=== PATIENT | female | born 1930 | race Caucasian/White ===

== ENCOUNTER 2017-06-14 23:48 | Inpatient (IN) ==
[2017-06-14] MEDS ORDERED: ASPIRIN PO STA (23:59)
[2017-06-15] MEDS ORDERED: PEPCID PO ONE (00:12)
--- NOTE | 2017-06-15 00:25 | EKG Report ---
Test Performed on : 06/15/2017 00:18:38 AM Test Reason : CHEST PAIN Blood Pressure : / mmHG Vent. Rate : 101 BPM Atrial Rate : 129 BPM P-R Int : 000 ms QRS Dur : 082 ms QT Int : 318 ms P-R-T Axes : 000 069 229 degrees QTc Int : 412 ms Atrial fibrillation. with rapid ventricular response. Nonspecific ST and T wave abnormality Abnormal ECG When compared with ECG of 04-JUN-2015 02:46, No significant change was found Unconfirmed Result
[2017-06-15 00:38] LABS: BASO% 0.1 % (0.0-0.8); HEMATOCRIT 33.7 % (37.0-47.0); IMM GRAN# 0.18 X1000 (0.0-0.04); IMM GRAN% 0.6 % (0.0-0.5); LYMPH% 1.9 % (20.5-51.1); MANUAL DIFF NEEDED? YES; MCH 30.1 PG (27-31); MCHC 32.6 g/dL (33-37); MCV 92.1 FL (81-99); MONO# 1.73 X1000 (0.11-0.59); MONO% 5.6 % (1.7-9.3); MPV 10.9 FL (7.4-10.4); NEUT% 91.8 % (42.2-75.2); PLT 253 X1000 (130-400); RBC 3.66 XMIL (4.2-5.4)
[2017-06-15 00:45] LABS: INR 0.97 (0.86-1.15); PROTIME 13.7 Seconds (12.1-15.5)
[2017-06-15 00:46] LABS: PTT PL 39.7 Seconds (22.6-43.9)
[2017-06-15 00:54] LABS: AGAP 13; ALBUMIN 4.2 g/dL (3.5-5.0); ALKALINE PHOSPHATASE 74 U/L (32-104); BUN 15 mg/dL (8-22); CALCIUM 8.8 mg/dL (8.8-10.2); CHLORIDE 96 mmol/L (98-107); CK PROFILE 61 U/L (24-173); COSMO 270; GOT 15 U/L (10-30); GPT 6 U/L (10-36); MAGNESIUM 2.1 mg/dL (1.5-2.7); POTASSIUM 3.4 mmol/L (3.5-5.1); SODIUM 134 mmol/L (136-145); TCO2 25 mmol/L (25-35); TOTAL PROTEIN 6.8 g/dL (6.3-8.3)
[2017-06-15 01:48] LABS: BANDS 6 % (0-1); LYMPHS 3 % (21-51); MONO 4 % (1-9)
[2017-06-15] MEDS ORDERED: LEVAQUIN 500 MG/D5W 500 MG/100 ML IVPB IV ONE (02:16)
[2017-06-15] MEDS ORDERED: TYLENOL PO PRN (02:19)
[2017-06-15] MEDS ORDERED: ZOFRAN IV PRN (02:19)
--- NOTE | 2017-06-15 02:23 | PROVIDER DOCUMENTATION ---
This chart was entered by Sonja Hunter Scribe, acting as scribe for Wallace Springer MD. HPI-Respiratory General - General Chief Complaint: Chest Pain Stated Complaint: Chest pain Time Seen by Provider: 06/14/17 23:55 Source: patient Allergies/Adverse Reactions: Patient Allergies Allergy/AdvReac Type Severity Reaction Status Date / Time No Known Allergies Allergy Verified 06/14/17 23:55 Home Medications: Home Medication List Medication Instructions Recorded Confirmed Last Taken Type Furosemide [Lasix] 40 mg PO DAILY 11/13/13 06/14/17 06/03/15 08:00 History Digoxin [Digox] 125 mcg PO QAM 02/19/14 06/14/17 06/03/15 08:00 History Acetaminophen with Codeine 1 each PO Q12H PRN PRN #15 tablet 03/31/16 06/14/17 Unknown Rx [Tylenol with Codeine #3] Hydrocodone/Acetaminophen [Etters 1 PO Q4-6H PRN PRN 06/14/17 Unknown History 5-325 Tablet] Metoprolol Succinate E.r. [Toprol 25 mg PO DAILY 06/14/17 06/14/17 Unknown History Xl] - History of Present Illness-Resp Nature of Presenting Problem: 87 year old F presents to the ED with a cc of chest pain, shortness of breath, and ABD pain with an onset of 1600. PT states that she has had episodes like this for 5-6 years and states that they have been worked up by Dr. Chilel. Pt states that the symptoms usually resolve. Pt states that she is feeling some better tonight. Quality of Pain: reports: aching Severity in ED: reports: mild Onset/Duration: reports: this afternoon (1600) Timing: reports: still present Cough Quality/Degree: reports: no cough Current Respiratory Medication Therapy: Initiated see nurses note Associated Symptoms: reports: chest pain/soreness, shortness of breath Similar Symptoms Previously?: Yes Recently seen or treated by another doctor?: No Review of Systems - Adult - REVIEW OF SYSTEMS - ADULT Constitutional: denies: chills, fever Eyes: reports: no symptoms reported Ears, Nose, Mouth & Throat: reports: no symptoms reported Cardiovascular: reports: chest pain. denies: palpitations Respiratory: reports: shortness of breath. denies: cough Gastrointestinal: reports: abdominal pain. denies: nausea, vomiting Genitourinary: reports: no symptoms reported Musculoskeletal: reports: no symptoms reported Integumentary: reports: no symptoms reported Neurological: reports: no symptoms reported Psychiatric: reports: no symptoms reported Endocrine: reports: no symptoms reported Hematologic/Lymphatic: reports: no symptoms reported Allergic/Immunologic: reports: no symptoms reported All Other Systems: Reviewed and Negative Past History - Adult - PAST MEDICAL HISTORY-ADULT Review of Records: reports: Nursing Assessment Review, Medications Reviewed Major Childhood Illnesses: reports: denies history Cardiovascular: reports: cardiac disease, CHF, HTN - PRIOR SURGERIES/PROCEDURES Surgical/Procedure History: reports: hysterectomy, tonsillectomy - IMMUNIZATION STATUS Childhood Immunizations: See Nurse Assessment Flu Vaccine: See Nurse Assessment - SOCIAL HISTORY Smoking: non-smoker Substance Use: none/never Alcohol Use Frequency: never Living Situation: family Physical Exam-General - PHYSICAL EXAM-ADULT Initial Vital Signs Reviewed: Yes - CONSTITUTIONAL General Appearance: appears well, alert, no apparent distress - RESPIRATORY Respiratory: crackles (bilateral bases) - CARDIOVASCULAR Cardiovascular: systolic murmur (4/6), irregularly irregular - GASTROINTESTINAL (ABDOMEN) Abdominal Exam: normal bowel sounds, non tender, soft - SKIN Integumentary: normal color, normal turgor, warm/dry - PSYCHIATRIC Psych/Mental Status: normal mood/affect, normal thought content, normal thought process, oriented x 3 Progress - PLAN OF CARE/RESULTS Progress/Plan/Lab Results: Vital Signs - 8 hr 06/14/17 23:50 06/15/17 00:54 Temperature 97.1 F L Pulse Rate 123 H 109 H Respiratory Rate 17 17 Blood Pressure 149/100 150/89 O2 Sat by Pulse Oximetry 90 L 93 L Laboratory Results - last 24 hr 06/14/17 06/14/17 06/14/17 00:15 00:15 00:15 WBC RBC Hgb Hct MCV MCH MCHC RDW Std Deviation Plt Count MPV Immature Gran % (Auto) Neut % (Auto) Lymph % (Auto) [place] % (Auto) Eos % (Auto) Baso % (Auto) Immature Gran # (Auto) Neut # (Auto) Lymph # (Auto) [place] # (Auto) Eos # (Auto) Baso # (Auto) Segmented Neutrophils Band Neutrophils Lymphocytes Monocytes Anisocytosis PT INR APTT (Factor Assay) D-Dimer Sodium 134 L Potassium 3.4 L Chloride 96 L Carbon Dioxide 25 Anion Gap 13 BUN 15 Creatinine 0.6 Estimated GFR/1.73 m2 > 60 BUN/Creatinine Ratio 25 Glucose 121 H Calculated Osmolality 270 Calcium 8.8 Magnesium 2.1 Total Bilirubin 0.80 AST 15 ALT 6 L Alkaline Phosphatase 74 Creatine Kinase 61 Troponin T < 0.010 Prx-I-Suwslmvbuti Pept 4708 H Total Protein 6.8 Albumin 4.2 Globulin 3.0 Albumin/Globulin Ratio 2.0 06/14/17 06/14/17 00:15 00:15 WBC 30.81 H RBC 3.66 L Hgb 11.0 L Hct 33.7 L MCV 92.1 MCH 30.1 MCHC 32.6 L RDW Std Deviation 12.9 Plt Count 253 MPV 10.9 H Immature Gran % (Auto) 0.6 H Neut % (Auto) 91.8 H Lymph % (Auto) 1.9 L [place] % (Auto) 5.6 Eos % (Auto) 0.0 Baso % (Auto) 0.1 Immature Gran # (Auto) 0.18 H Neut # (Auto) 28.26 H Lymph # (Auto) 0.60 L [place] # (Auto) 1.73 H Eos # (Auto) 0.00 Baso # (Auto) 0.04 Segmented Neutrophils 87 H Band Neutrophils 6 H Lymphocytes 3 L Monocytes 4 Anisocytosis 1+ PT 13.7 INR 0.97 APTT (Factor Assay) 39.7 D-Dimer 1.38 H Sodium Potassium Chloride Carbon Dioxide Anion Gap BUN Creatinine Estimated GFR/1.73 m2 BUN/Creatinine Ratio Glucose Calculated Osmolality Calcium Magnesium Total Bilirubin AST ALT Alkaline Phosphatase Creatine Kinase Troponin T Kvg-[id number]-Amlglvlkxad Pept Total Protein Albumin Globulin Albumin/Globulin Ratio Orders Category Date Time Status Admit - [facility] Routine AdmDCTranf 06/15/17 02:19 Ordered Activity - Bed Rest with BRP ORDERED Care 06/15/17 02:19 Active Cardiac Monitoring DIRECTED Care 06/14/17 23:59 Active Neurological Check PRN Care 06/15/17 02:19 Active Oxygen Therapy- ED Nursing DIRECTED Care 06/14/17 23:59 Active Saline Loc DIRECTED Care 06/15/17 02:19 Active Saline Loc NOW Care 06/14/17 23:59 Active Vital Signs Order ROUTINE Care 06/15/17 02:19 Active Heart Healthy Diet Diet 06/15/17 02:20 Active CHEST-2 VIEWS [RAD] Stat Exams 06/14/17 23:59 Taken BLOOD CULTURE [BLDCUL] Stat Lab 06/15/17 02:16 Ordered CBC WITH ELECTRONIC DIFF [HEME] Stat Lab 06/14/17 00:15 Completed CK PROFILE [SP CHEM] Stat Lab 06/14/17 00:15 Completed COMPREHENSIVE METABOLIC PANEL [CHEM] Stat Lab 06/14/17 00:[address] D-D[address]ER [address] [COAG] Stat Lab 06/14/17 00:15 Completed MAGNESIUM [CHEM] Stat Lab 06/14/17 00:15 Completed PRO B-NATRIURETIC PEPTIDE Stat Lab 06/14/17 00:[address] Com[address]IME WITH INR PL [COAG] Stat Lab 06/14/17 00:[address] [COAG] Stat Lab 06/14/17 00:15 Completed TROPONIN T Stat Lab 06/14/17 00:15 Completed Acetaminophen [Tylenol] Med 06/15/17 02:19 Active 650 mg PO Q6H PRN PRN Aspirin Med 06/14/17 23:59 Discontinued 325 mg PO STAT STA Famotidine [Pepcid] Med 06/15/17 00:12 Discontinued 40 mg PO NOW ONE Levofloxacin 500 mg/D5w [Levaquin 500 mg/D5w] Med 06/15/17 02:16 Active 500 mg in 100 ml IV NOW Levofloxacin 500 mg/D5w [Levaquin 500 mg/D5w] Med 06/15/17 02:30 Ordered 500 mg in 100 ml IV Q24H Ondansetron [Zofran] Med 06/15/17 02:19 Active 4 mg IV Q4H PRN PRN EKG [EKG] Stat Ther 06/14/17 23:59 Draft Transfer/Admit Order [TRANSFER] Routine Transfer 06/15/17 02:21 Ordered Result Diagrams: 06/14/17 00:15 06/14/17 00:15 - EKG 1 Time of EKG reading by physician:: 00:18 EKG Read and Signed by:: Wallace Springer EKG Interpretation (*Must complete 3 of following elements*): Abnormal Rate: 101 Rhythm: atrial fibrillation with RVR ST Wave: non-specific ST changes - XRAY 1 XRAY Study: Chest Impression: Abnormal XRAY Interpretation: cardiomegally, left basilar infiltrate: Dr. Springer(ER MD) - CONSULTS/PCP/HOSPITALIST Notification #1 *Consult/PCP/Hospitalist*: Dr. Murray(Hospitalist) Time Discussed: : Reason/Comments: consult for admission Consult Disposition: Admit Departure - Departure Date of Disposition Decision: 06/15/17 Time of Disposition Decision: 02:22 DIAGNOSIS: Pneumonia Qualifiers: Pneumonia type: due to unspecified organism Laterality: left Lung location: lower lobe of lung Qualified Code(s): J18.1 - Lobar pneumonia, unspecified organism Disposition: ADMITTED INPATIENT 09 Certified Medical Emergency: Emergent Condition: Fair - Critical Care Note This patient required my direct & personal management of CC.: No Attestation - Physician/ ALINE Attestation The physician spent face to face time with patient:: Yes Advanced Practice Provider documentation review:: Supervising physician onsite and consulted in the evaluation and care of this patient. The physician did have a face to face encounter with the patient. This chart was documented by the indicated scribe, (Sonja Hunter Scribe) and accurately reflects the services I performed and decisions made by me, Wallace Springer MD, as attested by the provider's signature.
[2017-06-15] MEDS ORDERED: PERCOCET-5 PO ONE (02:28)
--- NOTE | 2017-06-15 06:23 | Diag Imaging Result Doc PS360 ---
EXAM: CHEST-2 VIEWS HISTORY: CP TECHNIQUE: COMPARISON: 03/31/2016 FINDINGS: The lungs are hyperexpanded. The heart is enlarged. No pleural effusions. There are old left rib fractures. No consolidation. The patient has scoliosis. IMPRESSION: Cardiomegaly and emphysema. Electronically signed by Abdifatah Malone 06/15/2017 6:21 AM
[2017-06-15 08:57] LABS: HEMATOCRIT 32.3 % (37.0-47.0); HEMOGLOBIN 10.6 g/dL (12.0-16.0); MCH 30.5 PG (27-31); MCHC 32.8 g/dL (33-37); MCV 93.1 FL (81-99); MPV 11.3 FL (7.4-10.4); RBC 3.47 XMIL (4.2-5.4)
[2017-06-15] MEDS ORDERED: LASIX PO SCH (09:00)
[2017-06-15 09:20] LABS: AGAP 12; ALBUMIN 3.8 g/dL (3.5-5.0); ALKALINE PHOSPHATASE 65 U/L (32-104); BUN 18 mg/dL (8-22); CALCIUM 8.6 mg/dL (8.8-10.2); CHLORIDE 96 mmol/L (98-107); COSMO 273; DIGOXIN 1.2 ng/mL (0.9-2.0); GOT 15 U/L (10-30); GPT 6 U/L (10-36); POTASSIUM 3.7 mmol/L (3.5-5.1); SODIUM 134 mmol/L (136-145); TCO2 27 mmol/L (25-35); TOTAL PROTEIN 6.5 g/dL (6.3-8.3)
[2017-06-15] MEDS: LASIX PO SCH (10:34)
[2017-06-15] MEDS: NS 1,000 ML IV SCH (10:34)
[2017-06-15] MEDS: LANOXIN PO SCH (10:35)
[2017-06-15] MEDS: TOPROL XL PO SCH (10:35)
--- NOTE | 2017-06-15 14:53 | HISTORY AND PHYSICAL ---
CHIEF COMPLAINT: chest pain, shortness of breath. HISTORY OF PRESENT ILLNESS: This is an 87-year-old female who presented to the emergency room complaining of chest pain, shortness of breath, and abdominal pain that started about 4 or 5 hours prior to coming to the emergency room. She describes this as an aching type pain which increases with activity and decreases somewhat with rest. EKG atrial fibrillation with rapid ventricular response at a rate of 100. Room air O2 saturation of 90% that did increase to 98%-99% on 2 L nasal cannula. CXR revealed left lower lobe pneumonia PAST MEDICAL HISTORY: Atrial fibrillation. History of congestive heart failure. Hypertension. Known systolic murmur. History of DVT. PAST SURGICAL HISTORY: Hysterectomy and tonsillectomy. SOCIAL HISTORY: She denies alcohol, tobacco, or illicit drug use. ALLERGIES: No known drug allergies. CURRENT MEDICATIONS: Lasix 40 mg daily, Toprol-XL 25 mg daily, and digoxin 125 mcg daily. REVIEW OF SYSTEMS: A 14 point review of systems discussed with the patient and pertinent positives stated in HPI. She denied palpitations, dizziness, syncope, nausea, vomiting, any black or bloody stools, black or bloody vomitus, PND, orthopnea, hematuria, dysuria, frequency, urgency. PHYSICAL EXAMINATION: GENERAL APPEARANCE: This is an 87-year-old female who is sitting up in the bed , in no distress. VITAL SIGNS: Blood pressure is 109/65, with heart rate of 71, respirations are 18, temperature is 97.8 degrees oral, with O2 saturations of 98%-99% on 2 L nasal cannula. HEENT: Head is normocephalic, atraumatic. Pupils equal, round, react to light. EOMs are intact. Sclerae anicteric. Mucous membranes are moist. NECK: Supple. Trachea midline. CARDIOVASCULAR: Irregularly irregular rate and rhythm with a holosystolic murmur 4/6. PULMONARY: Breath sounds are diminished throughout. CHEST: Does rise and fall symmetrically with respiration. GASTROINTESTINAL: Abdomen soft, nontender, nondistended, with bowel sounds in upper quadrants. EXTREMITIES: No clubbing, cyanosis, or edema. Calves nontender. Pulses are palpable x4. NEUROLOGIC: She is alert and oriented x3. DIAGNOSTICS: WBC is 30.8, with a hemoglobin of 11, hematocrit 33.7, and platelet count 253,000. Sodium is 134, potassium 3.4, BUN 15, creatinine 0.6, with a glucose of 121. Chest x-ray per radiology read with cardiomegaly and emphysema. ASSESSMENT: 1. Left lower lobe pneumonia. 2. Atrial fibrillation, chronic,now with RVR 3. Leukocytosis. 4. Elevated D-dimer. 5. Hypertension. PLAN: She will be admitted to the hospital, placed on telemetry. Blood cultures have been drawn and Levaquin started in the ER, We will continue this. Any change in antibiotics will be culture driven. We will identify her home medications continue as appropriate We will obtain labs daily. Further treatment pending hospital course. Dictated by RAYSA Davis for Ncianor Murray MD cc: RAYSA Davis MD MTDD
--- NOTE | 2017-06-15 15:25 | Diag Imaging Result Doc PS360 ---
EXAM: CT ANGIOGRM/PULMONARY ARTERIES HISTORY: CP, POOLE, elevated ddimer, h/o DVT TECHNIQUE: Routine CT angiogram of the chest with IV contrast with 3-D reconstructions. COMPARISON: None. FINDINGS: There is pulmonary emphysema is appropriate opacification of the pulmonary arteries and branches. There are no filling defects to suggest acute pulmonary embolism. There are nonspecific areas of groundglass attenuation posterior superior right lower lobe, anterolateral left upper lobe and posterior lower lobes inferiorly. There is linear atelectasis or scarring left lower lobe and a small left pleural effusion. Images of the upper abdomen reveal an IVC filter. The aorta is tortuous. There is cardiomegaly. No pericardial effusion or mediastinal lymphadenopathy is appreciated. IMPRESSION: 1.No evidence for acute pulmonary embolism. 2.Pulmonary emphysema. 3.Patchy bilateral infiltrates and small left effusion which may indicate bronchopneumonia. Electronically signed by Mariam Mcfarlane 06/15/2017 3:22 PM
[2017-06-15] MEDS: DUONEB (A & A) INH SCH ×3 (15:36→23:27)
--- NOTE | 2017-06-16 03:37 | PROGRESS NOTE ---
DATE: 06/15/2017 ADDENDUM: SUBJECTIVE: Patient notes she has had increased cough, congestion. She denies any fevers, chills. Chest, decreased breath sounds but equal bilaterally. Positive rhonchi abdomen soft. ASSESSMENT: Pneumonia. PLAN: Patient was seen and examined. Plan was discussed with nurse practitioner. Please see history and physical for further details. We will continue antibiotics. Further orders as needed. cc: Nicanor Murray MD
[2017-06-16] MEDS: DUONEB (A & A) INH SCH ×6 (03:38→23:01)
[2017-06-16] MEDS: NS 1,000 ML IV SCH (05:22)
[2017-06-16 05:46] LABS: HEMATOCRIT 31.3 % (37.0-47.0); HEMOGLOBIN 10.1 g/dL (12.0-16.0); MCHC 32.3 g/dL (33-37); MCV 92.9 FL (81-99); RBC 3.37 XMIL (4.2-5.4)
[2017-06-16] MEDS ORDERED: LEVAQUIN 500 MG/D5W 500 MG/100 ML IVPB IV SCH ×2 (06:00→08:02)
[2017-06-16 06:17] LABS: AGAP 15; ALKALINE PHOSPHATASE 72 U/L (32-104); BUN 13 mg/dL (8-22); CALCIUM 8.7 mg/dL (8.8-10.2); CHLORIDE 99 mmol/L (98-107); COSMO 275; GOT 17 U/L (10-30); GPT 8 U/L (10-36); POTASSIUM 3.2 mmol/L (3.5-5.1); SODIUM 138 mmol/L (136-145); TCO2 24 mmol/L (25-35); TOTAL PROTEIN 6.6 g/dL (6.3-8.3)
[2017-06-16] MEDS: TOPROL XL PO SCH (08:25)
[2017-06-16] MEDS: LANOXIN PO SCH (08:25)
[2017-06-16] MEDS: LASIX PO SCH (08:25)
[2017-06-16] MEDS: CARDIZEM PO SCH ×2 (13:52→20:40)
--- NOTE | 2017-06-16 14:55 | EKG Report ---
Test Performed on : 06/16/2017 2:09:59 PM Test Reason : Increased Heart Rate Blood Pressure : / mmHG Vent. Rate : 104 BPM Atrial Rate : 100 BPM P-R Int : 000 ms QRS Dur : 090 ms QT Int : 324 ms P-R-T Axes : 000 069 267 degrees QTc Int : 426 ms Atrial fibrillation. with rapid ventricular response. ST \T\ T wave abnormality, consider inferior ischemia Abnormal ECG When compared with ECG of 15-JUN-2017 00:18, No significant change was found Confirmed by Nnamdi Guillory MD ([id number]) on 06/29/2017 6:47:18 PM
[2017-06-16 16:38] LABS: BILIRUBIN URINE NEGATIVE (NEGATIVE); BLOOD URINE 2+ (NEGATIVE); CLARITY CLEAR (CLEAR); COLOR YELLOW; GLUCOSE URINE NEGATIVE (NEGATIVE); LEUKOCYTES URINE 2+ (NEGATIVE); NITRITE URINE NEGATIVE (NEGATIVE); PROTEIN URINE NEGATIVE (NEGATIVE); SP GRAVITY URINE 1.005; UROBILINOGEN URINE NORMAL
[2017-06-16 16:39] LABS: URINE CAST NONE SEEN /LPF; URINE CRYSTAL NONE SEEN /HPF; URINE CULTURE PL NEEDED? YES; URINE EPITHELIAL CELLS <10 /HPF (<10); URINE RBC <10 /HPF (<10)
[2017-06-16 16:40] LABS: URINE SOURCE CLEAN CATCH
--- NOTE | 2017-06-16 20:06 | PROGRESS NOTE ---
DATE: 06/16/2017 SUBJECTIVE: Patient states that she is feeling better this morning. Denies any chest pain. She wants to get out of bed. She wants to get clothes so she can go home. OBJECTIVE: Vital Signs: Reviewed. She is afebrile. Blood pressure is stable. Heart rate 80s. Respiratory 20. General: Patient is awake, alert, elderly female who is confused at times. HEENT: Normocephalic, atraumatic. ALEA. Neck: Supple. CARDIOVASCULAR: Regular rate. Chest: Much more improved air movement bilaterally. No crackles. No wheezing. Extremities: Moves all extremities. Neurologic: No focal changes. Skin: Warm and dry. No rashes. DIAGNOSTIC DATA: WBC 16. ASSESSMENT: 1. Leukocytosis, improving. White count has dropped from 30 down to 16. 2. Pneumonia. Continue antibiotics. 3. Dehydration, resolved. PLAN: We will continue antibiotics. We will address change clerk to oral as she is much improved from admission. We will recheck laboratory in the a.m. Hopefully home soon. cc: Nicanor Murray MD
[2017-06-16] MEDS ORDERED: ZOLOFT PO SCH (21:00)
[2017-06-17] MEDS: DUONEB (A & A) INH SCH ×2 (03:13→08:05)
[2017-06-17] MEDS: CARDIZEM PO SCH (05:40)
[2017-06-17 07:20] VITALS: BP 152/85
[2017-06-17 08:01] LABS: HEMATOCRIT 33.7 % (37.0-47.0); HEMOGLOBIN 10.8 g/dL (12.0-16.0); MCH 30.1 PG (27-31); MCV 93.9 FL (81-99); MPV 11.1 FL (7.4-10.4); RBC 3.59 XMIL (4.2-5.4)
[2017-06-17 08:19] LABS: AGAP 12; ALKALINE PHOSPHATASE 68 U/L (32-104); BUN 12 mg/dL (8-22); CALCIUM 8.9 mg/dL (8.8-10.2); CHLORIDE 97 mmol/L (98-107); COSMO 275; GOT 19 U/L (10-30); GPT 10 U/L (10-36); POTASSIUM 3.1 mmol/L (3.5-5.1); SODIUM 137 mmol/L (136-145); TCO2 28 mmol/L (25-35); TOTAL PROTEIN 7.3 g/dL (6.3-8.3)
[2017-06-17] MEDS ORDERED: LEVAQUIN PO SCH (09:00)
[2017-06-17] MEDS ORDERED: CARDIZEM CD PO SCH (09:00)
[2017-06-17] MEDS: LASIX PO SCH (09:16)
[2017-06-17] MEDS: LANOXIN PO SCH (09:16)
--- NOTE | 2017-06-17 21:11 | DISCHARGE SUMMARY ---
ADMISSION DATE: 06/15/2017 DISCHARGE DATE: 06/17/2017 DIAGNOSES: 1. Left lower lobe pneumonia. 2. Chronic atrial fib, RVR on admit, rate now controlled. 3. Leukocytosis, resolved. 4. Elevated D-dimer. - CTA pulmonary with no evidence for pulmonary embolism. 6. Hypertension. DIAGNOSTICS: 06/14/2017 chest x-ray: Revealed cardiomegaly and emphysema. Pulmonary arteriogram: Revealed no evidence for pulmonary embolism. Patchy bilateral infiltrates which may indicate broncho pneumonia. Blood cultures: Revealed no growth after 48 hours. Urine culture: Revealed no growth x2. HOSPITAL COURSE: Ms. Colon presented to the emergency room complaining of chest pain and shortness of breath. She was found to have bronchial pneumonia, for which she was given antibiotics of Levaquin. Blood cultures were negative. She was given DuoNebs and supplemental oxygen, which we did wean. She was in atrial fib with a rate controlled in the 60s to 80s. We did continue her home medications and she did maintain sats of 98-99%. She was afebrile. On admission, her white count was 30. It has trended down nicely, being 10 today. She is feeling better and she wishes to go home. PHYSICAL EXAMINATION: Cardiovascular: Irregularly irregular with a 4/6 holosystolic murmur noted. Pulmonary: Breath sounds are diminished throughout with no increased work of breathing noted. Gastrointestinal: Abdomen is soft, nontender, nondistended. Bowel sounds in all 4 quadrants. Extremities: No clubbing, cyanosis, or edema. Calves are nontender and pulses palpable x4. Vital Signs: Blood pressure is 152/85 with a heart rate of 81, respirations are 18, temperature is 98.8 degrees with O2 saturations of 98-99%. DISCHARGE MEDICATIONS: 1. Lasix 40 mg daily. 2. Zoloft 25 mg at bedtime. 3. Levaquin 500 mg daily for 7 days. 4. Cardizem CD 120 daily. 5. Digoxin 125 mcg daily. FOLLOWUP: 1. She is to follow with her primary care physician in 1 to 2 weeks, sooner if needed. 2. She will have home health care with Frieda Lopez. 3. She has been instructed to return to the emergency room or be seen sooner for a temperature greater than 100.5, any shortness of breath, chest pain, fever, chills, productive cough, palpitations, dizziness, syncope or any questions or concerns that she may have. DISPOSITION: She is being discharged home in stable condition with family members. TIME SPENT: This is a greater than 30 minutes discharge. Dictated by RAYSA Davis for Nicanor Murray MD cc: RAYSA Davis MD [facility]
--- NOTE | 2017-06-18 09:08 | PROGRESS NOTE ---
DATE: 06/17/2017 ADDENDUM: Patient seen. She is awake and alert. She is able to move in the room back to her usual status. Her son is in the room. Full prognosis and plan was discussed with him. She currently is in no respiratory distress. She is tolerating oral medications and therefore will be discharged home. cc: Nicanor Murray MD
== END 2017-06-17 12:35 | disposition home health service (06) ==
LOC: P.ED 23:48 → P.MEDSURG 06-15 02:56
PROVIDERS: ATTEND Family Medicine